=== PATIENT | female | born 1990 | race American Indian/Alaskan Native ===

== ENCOUNTER 2017-05-31 00:12 | Emergency (ER) | payer OTHER ==
[2017-05-31 00:23] VITALS: RESP 18; TEMP 97.6; O2SAT 98
--- NOTE | 2017-05-31 00:55 | ED PDOC ---
Arrival/HPI - General Chief Complaint: Chest Pain Time Seen by Provider: 05/31/17 00:37 Historian: Patient - History of Present Illness Narrative History of Present Illness (Text): 05/31/17 00:52 26yo female with PMHx of seizure and Asthma who present with complaint of right sided chest pain since this morning. States pain is worse with movement and palpation. 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 Denies SOB, diaphoresis, cough, LE edema, calf pain, dizziness, recent travel, nausea, vomiting, abdominal pain, OCP use, any other complaint. Past Medical History - Provider Review Nursing Documentation Reviewed: Yes - Cardiac Hx Cardiac Disorders: No - Pulmonary Hx Respiratory Disorders: Yes - Neurological Hx Neurological Disorder: Yes Hx Seizures: Yes (today unk time) - HEENT Hx HEENT Disorder: No - Renal Hx Renal Disorder: No - Endocrine/Metabolic Hx Endocrine Disorders: No - Hematological/Oncological Hx Blood Disorders: No - Integumentary Hx Dermatological Disorder: No - Musculoskeletal/Rheumatological Hx Musculoskeletal Disorders: No - Gastrointestinal Hx Gastrointestinal Disorders: No - Genitourinary/Gynecological Hx Genitourinary Disorders: No - Psychiatric Hx Psychophysiologic Disorder: No Hx Substance Use: No Family/Social History - Physician Review Nursing Documentation Reviewed: Yes Family/Social History: Unknown Family HX Smoking Status: Never Smoked Hx Alcohol Use: No Hx Substance Use: No Allergies/Home Meds Allergies/Adverse Reactions: Allergies No Known Allergies Allergy (Verified 05/31/17 00:23) Home Medications: Home Meds Medication Instructions Recorded Confirmed Phenytoin, Extended [Dilantin 100 mg PO TID 05/31/17 05/31/17 Danika] Review of Systems - Physician Review All systems were reviewed & negative as marked: Yes - Review of Systems Constitutional: Normal Eyes: Normal ENT: Normal Respiratory: Normal Cardiovascular: Chest Pain. absent: Palpitations, Edema, Calf Pain, MARTINEZ, Orthopnea, Syncope Gastrointestinal: Normal Genitourinary Female: Normal Musculoskeletal: Normal Skin: Normal Neurological: Normal Endocrine: Normal Hemo/Lymphatic: Normal Psychiatric: Normal Physical Exam Vital Signs Reviewed: Yes Vital Signs Temp Pulse Resp BP Pulse Ox 05/31/17 00:17 97.6 F 82 18 101/66 98 Temperature: Afebrile Blood Pressure: Normal Pulse: Regular Respiratory Rate: Normal Appearance: Positive for: Well-Appearing, Non-Toxic, Comfortable Pain Distress: None Mental Status: Positive for: Alert and Oriented X 3 - Systems Exam Head: Present: Atraumatic, Normocephalic Pupils: Present: PERRL Extroacular Muscles: Present: EOMI Conjunctiva: Present: Normal Mouth: Present: Moist Mucous Membranes Neck: Present: Normal Range of Motion Respiratory/Chest: Present: Clear to Auscultation, Good Air Exchange, Tender to Palpation (Right sided sternal wall). No: Respiratory Distress, Accessory Muscle Use, Wheezes, Decreased Breath Sounds, Rales, Retracting, Rhonchi Cardiovascular: Present: Regular Rate and Rhythm, Normal S1, S2. No: Murmurs Abdomen: Present: Normal Bowel Sounds. No: Tenderness, Distention, Peritoneal Signs Back: Present: Normal Inspection Upper Extremity: Present: Normal Inspection. No: Cyanosis, Edema Lower Extremity: Present: Normal Inspection. No: Edema Neurological: Present: GCS=15, CN II-XII Intact, Speech Normal Skin: Present: Warm, Dry, Normal Color. No: Rashes Psychiatric: Present: Alert, Oriented x 3, Normal Insight, Normal Concentration Medical Decision Making ED Course and Treatment: 05/31/17 01:07 PT is not in any distress in ED. Her right sided chest pain is reproducible. Her PERC score is 0. EKG NSR @65bpm CXR NAD. GAs noted in abdomen. Pain could be secondary to gastritis. PT states she was told not take any analgesic because she takes Dilantin?. She will be DC home to f/u with her PMD/Clutch Inspector. Advised to avoid any strenuous/sport activity until she is cleared by a bricklayer paving brick. Advised to return to ED for any new or worsening symptoms. - RAD Interpretation Radiology Orders: 05/31/17 00:49 CHEST TWO VIEWS (PA/LAT) [RAD] Stat Disposition/Present on Arrival - Present on Arrival Any Indicators Present on Arrival: No History of DVT/PE: No History of Uncontrolled Diabetes: No Urinary Catheter: No History of Decub. Ulcer: No History Surgical Site Infection Following: None - Disposition Have Diagnosis and Disposition been Completed?: Yes Diagnosis: Chest pain Disposition: HOME/ ROUTINE Disposition Time: 01:45 Patient Plan: Discharge Condition: STABLE Discharge Instructions (ExitCare): Chest Pain (ED) Additional Instructions: Follow up with your Doctor/Clutch Inspector Avoid any strenuous/sport activity until your cleared by a bricklayer paving brick Return to ED for any new symptoms Forms: [employer] (Salvadorean)
[2017-05-31 02:04] VITALS: BP 110/68; PULSE 72
--- NOTE | 2017-05-31 16:46 | CARD ---
APPROVED REPORT EKG Measurement Heart [id number] [place] [id number] [id number] <Conclusion> Normal sinus rhythm with sinus arrhythmia Normal ECG
== END 2017-05-31 02:00 | disposition home or self-care (01) ==
LOC: ED 00:12 → MERGE 00:12 → ED 02:00
DX: R07.9 Chest pain, unspecified (principal)

== ENCOUNTER 2017-07-15 12:47 | Emergency (ER) | payer OTHER ==
[2017-07-15 12:57] VITALS: BMI 28.3
[2017-07-15 13:06] VITALS: RESP 18; TEMP 97.8
--- NOTE | 2017-07-15 13:20 | ED PDOC ---
Arrival/HPI - General Chief Complaint: Seizure Time Seen by Provider: 07/15/17 13:00 Historian: Patient - History of Present Illness Narrative History of Present Illness (Text): 07/15/17 13:12 A 27 year old female, whose past medical history includes seizure, presents to the emergency department after seizure. Family reports that patient was seizing in bed and they called EMS. Upon EMS arrival, patient was given Versed 5 mg with resolution of seizure. Limited HPI and ROS due to patient's current condition. PMD: Dr. Tone Schwartz Past Medical History - Provider Review Nursing Documentation Reviewed: Yes - Infectious Disease Hx of Infectious Diseases: None - Cardiac Hx Cardiac Disorders: No - Pulmonary Hx Respiratory Disorders: Yes - Neurological Hx Neurological Disorder: Yes Hx Seizures: Yes (today unk time) - HEENT Hx HEENT Disorder: No - Renal Hx Renal Disorder: No - Endocrine/Metabolic Hx Endocrine Disorders: No - Hematological/Oncological Hx Blood Disorders: No - Integumentary Hx Dermatological Disorder: No - Musculoskeletal/Rheumatological Hx Musculoskeletal Disorders: No - Gastrointestinal Hx Gastrointestinal Disorders: No - Genitourinary/Gynecological Hx Genitourinary Disorders: No - Psychiatric Hx Psychophysiologic Disorder: No Hx Substance Use: No Family/Social History - Physician Review Nursing Documentation Reviewed: Yes Family/Social History: No Known Family HX Smoking Status: Never Smoked Hx Alcohol Use: No Hx Substance Use: No Allergies/Home Meds Allergies/Adverse Reactions: Allergies No Known Allergies Allergy (Verified 05/31/17 02:00) Home Medications: Home Meds Medication Instructions Recorded Confirmed Phenytoin, Extended [Dilantin 100 mg PO TID [facility]31[facility]17 [facility] Review of Systems - Review of Systems Systems not reviewed;Unavailable: Altered Mental Status Neurological: Seizure Physical Exam Vital Signs Reviewed: Yes Vital Signs Temp Pulse Resp BP Pulse Ox 07/15/17 15:36 64 18 110/57 L 100 07/15/17 13:02 97.8 F 69 18 103/61 100 Temperature: Afebrile Blood Pressure: Normal Pulse: Regular Respiratory Rate: Normal Appearance: Positive for: Other (patient is arousable but non-verbal) Finger Stick Blood Glucose: 75 - Systems Exam Head: Present: Atraumatic, Normocephalic Pupils: Present: PERRL Extroacular Muscles: Present: EOMI, Other (full EOMI, no gaze deviation) Mouth: Present: Moist Mucous Membranes Respiratory/Chest: Present: Clear to Auscultation, Good Air Exchange. No: Respiratory Distress, Accessory Muscle Use Cardiovascular: Present: Regular Rate and Rhythm, Normal S1, S2. No: Murmurs Abdomen: Present: Normal Bowel Sounds. No: Tenderness, Distention, Peritoneal Signs Upper Extremity: Present: Normal Inspection Lower Extremity: Present: Normal Inspection, Other (spontaneous movement x 4) Neurological: Present: Other (crossing eyes at midline spontaneously; able to move all extremities with sternal rub) Psychiatric: Present: Alert, Other (patient arousable but non-verbal) Medical Decision Making ED Course and Treatment: 07/15/17 13:15 Impression: 27 year old female brought in by EMS after seizure episode. Family reports non-compliance with dilantin which is likely cause of breakthrough seizure. Patient has no head trauma and was lying in bed at home during seizure. Plan: -- EKG -- Chest X-ray -- Labs -- Urinalysis -- Urinary Catheter -- Urine Test -- Reassess and disposition Prior Visits: Notes and results from previous visits were reviewed. Patient was last seen in the emergency department on 05/31/2017 for right sided chest pain. Patient was d /c home. Progress Notes: EKG shows NSR at 70bpm with normal intervals and no st changes 07/15/17 14:33 Patient's sister now at bedside. Patient now AAox3. Dilantin subtherapeutic. 07/15/17 15:56 Loaded with cerebryx. On reevaluation, she has no complaints. She is requesting refill of dilantin. Labs and xray grossly normal. - Lab Interpretations Lab Results: 07/15/17 13:35 07/15/17 13:35 Lab Results 07/15/17 13:35: WBC 4.3 L, RBC 4.41, Hgb 12.1, Hct 37.2, MCV 84.4, MCH 27.4, MCHC 32.5, RDW 13.5, Plt Count 253, MPV 10.6, Gran % 43.9 L, Lymph % (Auto) 40.6 H, [place] % (Auto) 8.9 H, Eos % (Auto) 6.1 H, Baso % (Auto) 0.5, Gran # 1.87 , Lymph # (Auto) 1.7, [place] # (Auto) 0.4, Eos # (Auto) 0.3, Baso # (Auto) 0.02 07/15/17 13:35: Phenytoin < 3 L 07/15/17 13:35: Sodium 142, Potassium 4.1, Chloride 105, Carbon Dioxide 28, Anion Gap 12, BUN 9, Creatinine 0.6 L, Est GFR ( Amer) > 60, Est GFR (Non -Af Amer) > 60, Random Glucose 84, Calcium 9.6, Phosphorus 3.1, Magnesium 1.9, Total Bilirubin 0.4, AST 25, ALT 31, Alkaline Phosphatase 61, Total Protein 7.3 , Albumin 4.1, Globulin 3.2, Albumin/Globulin Ratio 1.3 07/15/17 13:35: Urine Color Light yellow, Urine Appearance Clear, Urine pH 7.5, Ur Specific [place] 1.015, Urine Protein Negative, Urine Glucose (UA) Negative, Urine Ketones Negative, Urine Blood Negative, Urine Nitrate Negative, Urine Bilirubin Negative, Urine Urobilinogen 0.2, Ur Leukocyte Esterase Negative 07/15/17 12:58: POC Glucose (mg/dL) 75 - RAD Interpretation Radiology Orders: 07/15/17 13:15 CHEST PORTABLE [RAD] Stat - Medication Orders Current Medication Orders: Discontinued Medications Fosphenytoin Sodium 1,000 mg/ (Sodium Chloride) 70 mls @ 100 mls/hr IV STAT STA Stop: 07/15/17 15:13 Last Admin: 07/15/17 16:05 Dose: 100 mls/hr eMAR Start Stop Document 07/15/17 16:05 SD (Rec: 07/15/17 16:06 [id number] Intravenous Solution Start Date 07/15/17 Start Time 16:06 - Scribe Statement The provider has reviewed the documentation as recorded by the Rebecca Guardado Provider Scribe Attestation: All medical record entries made by the Scribe were at my direction and personally dictated by me. I have reviewed the chart and agree that the record accurately reflects my personal performance of the history, physical exam, medical decision making, and the department course for this patient. I have also personally directed, reviewed, and agree with the discharge instructions and disposition. Disposition/Present on Arrival - Present on Arrival Any Indicators Present on Arrival: No History of DVT/PE: No History of Uncontrolled Diabetes: No Urinary Catheter: No History of Decub. Ulcer: No History Surgical Site Infection Following: None - Disposition Have Diagnosis and Disposition been Completed?: Yes Diagnosis: Seizure Disposition: HOME/ ROUTINE Disposition Time: 15:56 Patient Plan: Discharge Patient Problems: Current Active Problems Problem Status Onset Seizure Acute Condition: GOOD Discharge Instructions (ExitCare): Seizures, Adult (DC), Seizures Additional Instructions: Take all your medication as prescribed. Return to ED if condition worsens. Follow-up with PMD within 2 days Prescriptions: Phenytoin, Extended [Dilantin Kapseals] 100 mg PO TID #90 cer Referrals: Tone Schwartz MD [Primary Care Provider] - Follow up with primary Pedro Agarwal MD [Staff Provider] - Follow up with primary Forms: [employer] (Nepali)
[2017-07-15 14:05] LABS: BASO # 0.02 K/mm3 (0.0-2.0); BASO % 0.5 % (0.0-3.0); EOS # 0.3 (0.0-0.7); EOS % 6.1 % (1.5-5.0); GRAN # 1.87 (1.4-6.5); GRAN % 43.9 % (50.0-68.0); HEMOGLOBIN 12.1 g/dL (12.0-16.0); LYMPH # 1.7 (1.2-3.4); LYMPH % 40.6 % (22.0-35.0); MEAN CELL VOLUME 84.4 fl (80.0-105.0); MEAN CORPUSCULAR HEMOGLOBIN 27.4 pg (25.0-35.0); MEAN CORPUSCULAR HGB CONC 32.5 g/dl (31.0-37.0); MEAN PLATELET VOLUME 10.6 fl (7.0-11.0); MONO # 0.4 (0.1-0.6); MONO % 8.9 % (1.0-6.0); RBC 4.41 10^6/uL (3.5-6.1); RED CELL DISTRIBUTION WIDTH 13.5 % (11.5-14.5); WHITE BLOOD COUNT 4.3 10^3/ul (4.5-11.0)
[2017-07-15 14:07] LABS: PH,URINE 7.5 (4.7-8.0); URINE APPEARANCE CLEAR (CLEAR); URINE BILIRUBIN NEGATIVE (NEGATIVE); URINE BLOOD NEGATIVE (NEGATIVE); URINE COLOR LIGHT YELLOW (YELLOW); URINE GLUCOSE (UA) NEGATIVE (NEGATIVE); URINE LEUKOCYTE ESTERASE NEGATIVE Leu/uL (NEGATIVE); URINE PROTEIN NEGATIVE mg/dL (<30 mg/dL); URINE UROBILINOGEN 0.2 E.U./dL (<1 E.U./dL)
[2017-07-15 14:13] LABS: ALB/GLOB RATIO 1.3 (1.1-1.8); ALBUMIN 4.1 g/dL (3.0-4.8); ALT/SGPT 31 U/L (7-56); AST/SGOT 25 U/L (14-36); BLOOD UREA NITROGEN 9 mg/dL (7-21); CALCIUM 9.6 mg/dL (8.4-10.5); GFR AFRICAN-AMERICAN > 60; GFR NON-AFRICAN AMERICAN > 60
[2017-07-15] MEDS ORDERED: Fosphenytoin 1,000 MG in Sodium Chloride 0.9% 50 ML IV STA (14:32)
--- NOTE | 2017-07-15 15:53 | RAD ---
HISTORY: seizure COMPARISON: 05/31/2017. FINDINGS: LUNGS: The lungs are well inflated and clear. PLEURA: No significant pleural effusion identified, no pneumothorax apparent. CARDIOVASCULAR: Normal. OSSEOUS STRUCTURES: No significant abnormalities. VISUALIZED UPPER ABDOMEN: Normal. OTHER FINDINGS: None. IMPRESSION: No acute findings.
[2017-07-15 16:46] VITALS: BP 103/62; PULSE 67; O2SAT 99
--- NOTE | 2017-07-15 17:43 | CARD ---
APPROVED REPORT EKG Measurement Heart [id number] [place] 162P52 [id number] <Conclusion> Normal sinus rhythm Normal ECG
== END 2017-07-15 17:01 | disposition home or self-care (01) ==
LOC: ED 12:47
DX: R56.9 Unspecified convulsions (principal)
CPT/HCPCS: 71045; 80053; 80185; 81003; 82948; 83735; 84100; 85025; 93005; 96374; 99285; Q2009

== ENCOUNTER 2017-07-25 20:44 | Emergency (ER) | payer OTHER ==
[2017-07-25 20:47] VITALS: BMI 18.8
[2017-07-25 20:59] VITALS: RESP 18; TEMP 98.1; O2SAT 100
[2017-07-25 21:21] LABS: BASO # 0.04 K/mm3 (0.0-2.0); BASO % 0.8 % (0.0-3.0); EOS # 0.4 (0.0-0.7); EOS % 7.4 % (1.5-5.0); GRAN # 1.81 (1.4-6.5); GRAN % 35.3 % (50.0-68.0); HEMOGLOBIN 13.3 g/dL (12.0-16.0); LYMPH # 2.3 (1.2-3.4); LYMPH % 45.4 % (22.0-35.0); MEAN CELL VOLUME 81.5 fl (80.0-105.0); MEAN CORPUSCULAR HEMOGLOBIN 27.7 pg (25.0-35.0); MEAN CORPUSCULAR HGB CONC 33.9 g/dl (31.0-37.0); MEAN PLATELET VOLUME 10.1 fl (7.0-11.0); MONO # 0.6 (0.1-0.6); MONO % 11.1 % (1.0-6.0); RBC 4.81 10^6/uL (3.5-6.1); RED CELL DISTRIBUTION WIDTH 13.1 % (11.5-14.5); WHITE BLOOD COUNT 5.1 10^3/ul (4.5-11.0)
--- NOTE | 2017-07-25 21:27 | ED PDOC ---
Arrival/HPI - General Chief Complaint: Seizure Time Seen by Provider: 07/25/17 20:45 Historian: EMS EM Caveat: Acuity of Condition - History of Present Illness Narrative History of Present Illness (Text): 07/25/17 21:24 27 year old female presents to the Emergency department due to seizure just prior to arrival. Patient had one seizure, medics were called; patient had another seizure in front of them at the scene and then three more before arriving. While in the Emergency department, patient is unconscious due to being medicated by the medics. History and ROS are limited due to patient's condition. Time/Duration: Prior to Arrival Symptom Onset: Sudden Symptom Course: Unchanged Context: Home Past Medical History - Provider Review Nursing Documentation Reviewed: Yes - Infectious Disease Hx of Infectious Diseases: None - Cardiac Hx Cardiac Disorders: No - Pulmonary Hx Respiratory Disorders: Yes Hx Asthma: Yes - Neurological Hx Neurological Disorder: Yes Hx Seizures: Yes (seizure today07/25) - HEENT Hx HEENT Disorder: No - Renal Hx Renal Disorder: No - Endocrine/Metabolic Hx Endocrine Disorders: No - Hematological/Oncological Hx Blood Disorders: No - Integumentary Hx Dermatological Disorder: No - Musculoskeletal/Rheumatological Hx Musculoskeletal Disorders: No - Gastrointestinal Hx Gastrointestinal Disorders: No - Genitourinary/Gynecological Hx Genitourinary Disorders: No - Psychiatric Hx Psychophysiologic Disorder: No Hx Substance Use: No - Anesthesia Hx Anesthesia: Yes Hx Anesthesia Reactions: No Hx Malignant Hyperthermia: No Family/Social History - Physician Review Nursing Documentation Reviewed: Yes Family/Social History: Unknown Family HX Smoking Status: Never Smoked Hx Alcohol Use: No Hx Substance Use: No Allergies/Home Meds Allergies/Adverse Reactions: Allergies No Known Allergies Allergy (Verified 07/25/17 20:47) Review of Systems - Review of Systems Systems not reviewed;Unavailable: Acuity of Condition (patient is unconscious due to medication received) Physical Exam Vital Signs Reviewed: Yes Vital Signs Temp Pulse Resp BP Pulse Ox 07/26/17 01:35 77 18 105/89 100 07/25/17 23:17 78 18 105/64 100 07/25/17 20:58 98.1 F 65 18 101/65 100 Temperature: Afebrile Blood Pressure: Normal Pulse: Regular Respiratory Rate: Normal Appearance: Positive for: Well-Appearing, Non-Toxic, Comfortable Pain Distress: None Mental Status: Positive for: Alert and Oriented X 3 - Systems Exam Head: Present: Atraumatic, Normocephalic Pupils: Present: PERRL Conjunctiva: Present: Normal Mouth: Present: Moist Mucous Membranes Respiratory/Chest: Present: Clear to Auscultation, Good Air Exchange. No: Respiratory Distress, Accessory Muscle Use Cardiovascular: Present: Regular Rate and Rhythm, Normal S1, S2. No: Murmurs Back: Present: Normal Inspection Upper Extremity: Present: Normal Inspection. No: Cyanosis, Edema Lower Extremity: Present: Normal Inspection. No: Edema Skin: Present: Warm, Dry, Normal Color. No: Rashes Medical Decision Making ED Course and Treatment: 07/25/17 21:31 Impression: 27 year old female presents to the Emergency department following multiple seizures. Plan: -- EKG -- HCG qualitative urine -- Labs -- Reassess and disposition Prior Visits: Notes and results from previous visits were reviewed. Patient was last seen in the emergency department on 07/15/17, was diagnosed with seizure, and was discharged home. Progress Notes: 07/25/17 23:23 EKG: Ordered, reviewed, and independently interpreted the EKG. Rate : 66 BPM Rhythm : NSR Interpretation : Nonspecific ST/T segment changes - Lab Interpretations Lab Results: 07/25/17 20:58 07/25/17 20:58 Lab Results 07/25/17 23:40: Urine HCG, Qual Negative 07/25/17 23:40: Urine Opiates Screen Negative, Urine Methadone Screen Negative, Ur Barbiturates Screen Negative, Ur Phencyclidine Scrn Negative, Ur Amphetamines Screen Negative, U Benzodiazepines Scrn Positive, U Oth Cocaine Metabols Negative, U Cannabinoids Screen Negative 07/25/17 20:58: Phenytoin 8 L 07/25/17 20:58: Sodium 141, Potassium 3.9, Chloride 102, Carbon Dioxide 27, Anion Gap 16, BUN 9, Creatinine 0.7, Est GFR ( Amer) > 60, Est GFR (Non- Af Amer) > 60, Random Glucose 87, Calcium 10.2, Total Bilirubin 0.2, AST 56 H D , ALT 58 H, Alkaline Phosphatase 78, Total Protein 8.5 H, Albumin 4.7, Globulin 3.8, Albumin/Globulin Ratio 1.3 07/25/17 20:58: WBC 5.1, RBC 4.81, Hgb 13.3, Hct 39.2, MCV 81.5, MCH 27.7, MCHC 33.9, RDW 13.1, Plt Count 264, MPV 10.1, Gran % 35.3 L, Lymph % (Auto) 45.4 H, [place] % (Auto) 11.1 H, Eos % (Auto) 7.4 H, Baso % (Auto) 0.8, Gran # 1.81, Lymph # (Auto) 2.3, [place] # (Auto) 0.6, Eos # (Auto) 0.4, Baso # (Auto) 0.04 07/25/17 20:49: POC Glucose (mg/dL) 74 - Medication Orders Current Medication Orders: Discontinued Medications Fosphenytoin Sodium 500 mg/ (Sodium Chloride) 60 mls @ 100 mls/hr IVPB STAT STA Stop: 07/25/17 22:20 Last Admin: 07/25/17 22:24 Dose: 100 mls/hr eMAR Start Stop Document 07/25/17 22:24 AD (Rec: 07/25/17 22:24 AD [id number]) Intravenous Solution Start Date 07/25/17 Start Time 22:24 - Scribe Statement The provider has reviewed the documentation as recorded by the Rebecca Smith Provider Scribe Attestation: All medical record entries made by the Scribe were at my direction and personally dictated by me. I have reviewed the chart and agree that the record accurately reflects my personal performance of the history, physical exam, medical decision making, and the department course for this patient. I have also personally directed, reviewed, and agree with the discharge instructions and disposition. Disposition/Present on Arrival - Present on Arrival Any Indicators Present on Arrival: No History of DVT/PE: No History of Uncontrolled Diabetes: No Urinary Catheter: No History of Decub. Ulcer: No History Surgical Site Infection Following: None - Disposition Have Diagnosis and Disposition been Completed?: Yes Diagnosis: Seizure Disposition: HOME/ ROUTINE Disposition Time: 01:35 Condition: FAIR Discharge Instructions (ExitCare): Seizures, Adult (DC) Additional Instructions: take your medicine as directed Referrals: [facility] Lukasz Retomás, [Non-Staff] - Follow up with primary Forms: [employer] (Haitian), WORK NOTE
[2017-07-25 21:34] LABS: ALB/GLOB RATIO 1.3 (1.1-1.8); ALBUMIN 4.7 g/dL (3.0-4.8); ALT/SGPT 58 U/L (7-56); AST/SGOT 56 U/L (14-36); BLOOD UREA NITROGEN 9 mg/dL (7-21); CALCIUM 10.2 mg/dL (8.4-10.5); GFR AFRICAN-AMERICAN > 60; GFR NON-AFRICAN AMERICAN > 60
[2017-07-25] MEDS ORDERED: SODIUM CHLORIDE 0.9% IVPB STA (21:39)
[2017-07-25] MEDS ORDERED: FOSPHENYTOIN IVPB STA (21:39)
[2017-07-26 00:28] LABS: BARBITURATES, UR NEGATIVE (NEGATIVE)
[2017-07-26 00:30] LABS: BENZODIAZEPINES, UR POSITIVE (NEGATIVE); OPIATES, UR NEGATIVE (NEGATIVE); PHENCYCLIDINE, UR NEGATIVE (NEGATIVE)
[2017-07-26 01:46] VITALS: BP 105/89; PULSE 77
--- NOTE | 2017-07-26 11:08 | CARD ---
APPROVED REPORT EKG Measurement Heart [id number] [place] 158P62 [id number] <Conclusion> Normal sinus rhythm Normal ECG No change
== END 2017-07-26 01:35 | disposition home or self-care (01) ==
LOC: ED 20:44
DX: R56.9 Unspecified convulsions (principal)
CPT/HCPCS: 80053; 80185; 80324; 80345; 80346; 80349; 80353; 80358; 80361; 82948; 83992; 84703; 85025; 93005; 96374; 99285; Q2009

== ENCOUNTER 2017-09-06 11:03 | Emergency (ER) | payer OTHER ==
[2017-09-06 11:07] VITALS: BMI 23.8
[2017-09-06 11:12] VITALS: RESP 18; TEMP 97.8; O2SAT 100
--- NOTE | 2017-09-06 11:59 | RAD ---
HISTORY: cough x 1 week COMPARISON: No prior. TECHNIQUE: Chest PA and lateral FINDINGS: LUNGS: No active pulmonary disease. PLEURA: No significant pleural effusion identified. No pneumothorax apparent. CARDIOVASCULAR: Normal. OSSEOUS STRUCTURES: No significant abnormalities. VISUALIZED UPPER ABDOMEN: Normal. OTHER FINDINGS: None. IMPRESSION: No active disease.
[2017-09-06] MEDS ORDERED: Sodium Chloride 0.9% 1,000 ML IV STA (12:19)
--- NOTE | 2017-09-06 12:38 | ED PDOC ---
Arrival/HPI - General Chief Complaint: Cough, Cold, Congestion Time Seen by Provider: 09/06/17 11:23 Historian: Patient - History of Present Illness Narrative History of Present Illness (Text): 09/06/17 12:34 27-year-old female presents today with a one-week history of cough. Patient states the cough is dry and nonproductive. Patient states she has a history of asthma. Patient states today she woke up with chest pain and continued dry cough. Patient complaining of pain with deep inspiration. Patient complaining of shortness of breath. Patient states when she coughs she gags herself and sometimes vomits. Patient denies dizziness or weakness. Denies fevers or chills. Denies urinary symptoms. Denies calf pain. Denies recent travel. No other complaints Time/Duration: 1 week Past Medical History - Provider Review Nursing Documentation Reviewed: Yes - Travel History Have you recently traveled outside [place] w/in the past 3 mons?: No - Infectious Disease Hx of Infectious Diseases: None - Cardiac Hx Cardiac Disorders: No - Pulmonary Hx Respiratory Disorders: Yes Hx Asthma: Yes - Neurological Hx Seizures: Yes (today unk time) - HEENT Hx HEENT Disorder: No - Renal Hx Renal Disorder: No - Endocrine/Metabolic Hx Endocrine Disorders: No - Hematological/Oncological Hx Blood Disorders: No - Integumentary Hx Dermatological Disorder: No - Musculoskeletal/Rheumatological Hx Musculoskeletal Disorders: No - Gastrointestinal Hx Gastrointestinal Disorders: No - Genitourinary/Gynecological Hx Genitourinary Disorders: No - Psychiatric Hx Psychophysiologic Disorder: No Hx Substance Use: No - Anesthesia Hx Anesthesia: Yes Hx Anesthesia Reactions: No Hx Malignant Hyperthermia: No Family/Social History - Physician Review Nursing Documentation Reviewed: Yes Family/Social History: Unknown Family HX Smoking Status: Never Smoked Hx Alcohol Use: No Hx Substance Use: No Allergies/Home Meds Allergies/Adverse Reactions: Allergies No Known Allergies Allergy (Verified 07/25/17 20:47) Review of Systems - Review of Systems Constitutional: absent: Fatigue, Fevers ENT: Sore Throat, Sinus Congestion Respiratory: SOB, Cough. absent: Wheezing Cardiovascular: Chest Pain (only with cough). absent: Palpitations Gastrointestinal: absent: Abdominal Pain, Nausea, Vomiting Genitourinary Female: absent: Dysuria, Frequency, Hematuria Musculoskeletal: absent: Arthralgias, Back Pain, Neck Pain Skin: absent: Rash, Pruritis Neurological: absent: Headache, Dizziness Psychiatric: absent: Anxiety, Depression Physical Exam Vital Signs Reviewed: Yes Vital Signs Temp Pulse Resp BP Pulse Ox 09/06/17 14:32 72 18 118/75 100 09/06/17 12:17 70 18 101/66 100 09/06/17 11:12 97.8 F 87 18 109/78 100 Temperature: Afebrile Blood Pressure: Normal Pulse: Regular Respiratory Rate: Normal Appearance: Positive for: Well-Appearing, Non-Toxic, Comfortable Pain Distress: None Mental Status: Positive for: Alert and Oriented X 3 - Systems Exam Head: Present: Atraumatic Pupils: Present: PERRL Extroacular Muscles: Present: EOMI Conjunctiva: Present: Normal Ears: Present: Normal, NORMAL TM Mouth: Present: Moist Mucous Membranes Pharnyx: Present: Normal Nose (External): Present: Atraumatic Neck: Present: Normal Range of Motion Respiratory/Chest: Present: Clear to Auscultation, Good Air Exchange. No: Respiratory Distress, Accessory Muscle Use, Wheezes, Retracting, Rhonchi, Tachypneic, Tender to Palpation Cardiovascular: Present: Regular Rate and Rhythm, Normal S1, S2. No: Murmurs Abdomen: No: Tenderness, Rebound, Guarding Back: Present: Normal Inspection. No: CVA Tenderness Upper Extremity: Present: Normal ROM Lower Extremity: Present: Normal ROM Neurological: Present: GCS=15 Skin: Present: Warm, Dry, Normal Color. No: Rashes Psychiatric: Present: Alert, Oriented x 3 Medical Decision Making ED Course and Treatment: 09/06/17 12:47 Patient is nontoxic well-appearing. C/o flu-like symptoms. tylenol PO cbc; wnl cmp wnl dimer; elevated ekg: Normal sinus rhythm at 68 bpm normal axis normal intervals no ST elevations cxr; wnl cta; FINDINGS: PULMONARY ARTERIES: Unremarkable. No pulmonary embolism. AORTA: No acute findings. No thoracic aortic aneurysm. LUNGS: Unremarkable. No nodule, mass or pulmonary consolidation. PLEURAL SPACES: Unremarkable. No effusion or pneuomothorax. HEART: Unremarkable. No cardiomegaly. No significant pericardial effusion. LYMPH NODES: No lymphadenopathy. BONES, CHEST WALL: Unremarkable. No fracture or destructive lesion OTHER FINDINGS: Prominent anterior mediastinal retrosternal soft tissue likely residual thymus. IMPRESSION: Unremarkable CT pulmonary angiogram. No pulmonary embolus. Patient reassessment: Pt feeling better; vitals stable. zithromax given PO discussed all results with patient. I advised follow up with primary care physician within the next 2 days. I advised increase fluids and return if symptoms worsen persist or if new symptoms develop Patient verbalizes understanding of discharge instructions and need for immediate followup. all aspects of this case were discussed the attending of record. IMPRESSION; cough Motrin one tablet every 6 hours as needed for pain zithromax daily x 4 days. Increase fluids Followup with primary care physician the next 2 days Return if symptoms worsen persist or if new symptoms develop: Continued high fevers, dizziness, weakness, chest pain or shortness of breath vomiting/diarrhea , or if any other concerning symptoms develop 09/06/17 15:15 Reassessment Condition: Re-examined, Improved - Lab Interpretations Lab Results: 09/06/17 12:45 09/06/17 12:45 Lab Results 09/06/17 12:45: WBC 6.8 D, RBC 4.37, Hgb 12.1, Hct 36.1, MCV 82.6, MCH 27.7, MCHC 33.5, RDW 12.9, Plt Count 286, MPV 10.0, Gran % 44.3 L, Lymph % (Auto) 38.8 H, [place] % (Auto) 9.6 H, Eos % (Auto) 7.0 H, Baso % (Auto) 0.3, Gran # 2.99 , Lymph # (Auto) 2.6, [place] # (Auto) 0.7 H, Eos # (Auto) 0.5, Baso # (Auto) 0.02 09/06/17 12:45: Sodium 140, Potassium 4.0, Chloride 102, Carbon Dioxide 29, Anion Gap 13, BUN 9, Creatinine 0.6 L, Est GFR ( Amer) > 60, Est GFR (Non -Af Amer) > 60, Random Glucose 98, Calcium 9.2, Total Bilirubin 0.2, AST 44 H D , ALT 54, Alkaline Phosphatase 118, Total Protein 7.4, Albumin 4.1, Globulin 3.3 , Albumin/Globulin Ratio 1.2 09/06/17 12:45: D-Dimer, Quantitative 359 H - RAD Interpretation Radiology Orders: 09/06/17 11:23 CHEST TWO VIEWS (PA/LAT) [RAD] Stat 09/06/17 13:32 ANGIO CHEST PE PROTOCOL [CT] Stat - Medication Orders Current Medication Orders: Discontinued Medications Sodium Chloride (Sodium Chloride 0.9%) 1,000 mls @ 999 mls/hr IV .Q1H1M STA Stop: 09/06/17 13:19 Last Admin: 09/06/17 12:34 Dose: 999 mls/hr eMAR Start Stop Document 09/06/17 12:34 SZA (Rec: 09/06/17 12:35 SZA [id number]) Intravenous Solution Start Date 09/06/17 Start Time 12:34 End Date 09/06/17 End time 13:34 Total Infusion Time 60 Ketorolac Tromethamine (Toradol) 30 mg IVP STAT STA Stop: 09/06/17 12:20 Last Admin: 09/06/17 12:33 Dose: 30 mg MAR Pain Assessment Document 09/06/17 12:33 SZA (Rec: 09/06/17 12:33 SZA [id number]) Pain Reassessment Is this a pain reassessment? No Sleep Is patient sleeping during reassessment? No Presence of Pain Presence of Pain Yes IVP Administration Document 09/06/17 12:33 SZA (Rec: 09/06/17 12:33 SZA [id number]) Charges for Administration # of IVP Administrations 1 Disposition/Present on Arrival - Present on Arrival Any Indicators Present on Arrival: No History of DVT/PE: No History of Uncontrolled Diabetes: No Urinary Catheter: No History of Decub. Ulcer: No History Surgical Site Infection Following: None - Disposition Have Diagnosis and Disposition been Completed?: Yes Diagnosis: Cough Disposition: HOME/ ROUTINE Disposition Time: 15:17 Patient Plan: Discharge Patient Problems: Current Active Problems Problem Status Onset Cough Acute Condition: GOOD Discharge Instructions (ExitCare): Cough in Adults Additional Instructions: Motrin one tablet every 6 hours as needed for pain zithromax daily x 4 days. Increase fluids Followup with primary care physician the next 2 days Return if symptoms worsen persist or if new symptoms develop: Continued high fevers, dizziness, weakness, chest pain or shortness of breath vomiting/diarrhea , or if any other concerning symptoms develop Prescriptions: Azithromycin [Zithromax] 250 mg PO DAILY #4 tab Ibuprofen [Motrin] 600 mg PO Q6H PRN #20 tab PRN Reason: pain/fever reduction Referrals: Kendall Tierney MD [Staff Provider] - Follow up with primary [facility] [Outside] - Follow up with primary Forms: [employer] (Maori), WORK NOTE
[2017-09-06 13:04] LABS: BASO # 0.02 K/mm3 (0.0-2.0); BASO % 0.3 % (0.0-3.0); EOS # 0.5 (0.0-0.7); GRAN # 2.99 (1.4-6.5); GRAN % 44.3 % (50.0-68.0); HEMOGLOBIN 12.1 g/dL (12.0-16.0); LYMPH # 2.6 (1.2-3.4); LYMPH % 38.8 % (22.0-35.0); MEAN CELL VOLUME 82.6 fl (80.0-105.0); MEAN CORPUSCULAR HEMOGLOBIN 27.7 pg (25.0-35.0); MEAN CORPUSCULAR HGB CONC 33.5 g/dl (31.0-37.0); MONO # 0.7 (0.1-0.6); MONO % 9.6 % (1.0-6.0); RBC 4.37 10^6/uL (3.5-6.1); RED CELL DISTRIBUTION WIDTH 12.9 % (11.5-14.5); WHITE BLOOD COUNT 6.8 10^3/ul (4.5-11.0)
[2017-09-06 13:12] LABS: ALB/GLOB RATIO 1.2 (1.1-1.8); ALBUMIN 4.1 g/dL (3.0-4.8); ALT/SGPT 54 U/L (7-56); AST/SGOT 44 U/L (14-36); BLOOD UREA NITROGEN 9 mg/dL (7-21); CALCIUM 9.2 mg/dL (8.4-10.5); GFR AFRICAN-AMERICAN > 60; GFR NON-AFRICAN AMERICAN > 60
[2017-09-06] MEDS ORDERED: Iodixanol 320 MG/ML 100 ML BOTTLE IV ONE (13:51)
--- NOTE | 2017-09-06 14:46 | CT ---
PROCEDURE: CT Chest with contrast (Pulmonary Angiogram) HISTORY: chest pain/cough/sob COMPARISON: September 06, 2017. Two-view chest TECHNIQUE: Axial computed tomography images were obtained of the chest in the pulmonary arterial phase of enhancement. Coronal and sagittal reformatted images were created and reviewed. Intravenous contrast dose: 100 cc Omnipaque 350. Mean Hounsfield unit values in the main pulmonary artery: 407.26 Radiation dose: Total exam DLP = 303.31 mGy-cm. This CT exam was performed using one or more of the following dose reduction techniques: Automated exposure control, adjustment of the mA and/or kV according to patient size, and/or use of iterative reconstruction technique. FINDINGS: PULMONARY ARTERIES: Unremarkable. No pulmonary embolism. AORTA: No acute findings. No thoracic aortic aneurysm. LUNGS: Unremarkable. No nodule, mass or pulmonary consolidation. PLEURAL SPACES: Unremarkable. No effusion or pneuomothorax. HEART: Unremarkable. No cardiomegaly. No significant pericardial effusion. LYMPH NODES: No lymphadenopathy. BONES, CHEST WALL: Unremarkable. No fracture or destructive lesion OTHER FINDINGS: Prominent anterior mediastinal retrosternal soft tissue likely residual thymus. IMPRESSION: Unremarkable CT pulmonary angiogram. No pulmonary embolus.
[2017-09-06 15:27] VITALS: BP 115/71; PULSE 82
--- NOTE | 2017-09-06 20:13 | CARD ---
APPROVED REPORT EKG Measurement Heart [id number] <Conclusion> Normal sinus rhythm Normal ECG
== END 2017-09-06 15:50 | disposition home or self-care (01) ==
LOC: ED 11:03
DX: R05 Cough (principal)
CPT/HCPCS: 71046; 71275; 80053; 85025; 85378; 93005; 96361; 96374; 99284; J1885; J7040; Q9967

== ENCOUNTER 2017-10-21 13:30 | Emergency (ER) | payer OTHER ==
[2017-10-21 13:31] VITALS: BMI 23.8
--- NOTE | 2017-10-21 18:01 | ED PDOC ---
Arrival/HPI - General Chief Complaint: Back Pain Time Seen by Provider: 10/21/17 17:39 Historian: Patient - History of Present Illness Narrative History of Present Illness (Text): 10/21/17 17:57 27 year old female, whose past medical history includes UTI's, who presents to the emergency department complaining of lower back pain for several days. Patient notes she took several medications, such as tylenol and motrin, with minimal relief. Patient denies any fevers, chills, chest pain, shortness of breath, abdominal pain, nausea, vomiting, diarrhea, back pain, neck pain, urinary symptoms, headache, dizziness, trauma/injury, or any other complaint. Time/Duration: < week Symptom Onset: Gradual Symptom Course: Unchanged Activities at Onset: Light Context: Home Past Medical History - Provider Review Nursing Documentation Reviewed: Yes - Infectious Disease Hx of Infectious Diseases: None - Cardiac Hx Cardiac Disorders: No - Pulmonary Hx Respiratory Disorders: Yes Hx Asthma: Yes - Neurological Hx Seizures: Yes - HEENT Hx HEENT Disorder: No - Renal Hx Renal Disorder: No - Endocrine/Metabolic Hx Endocrine Disorders: No - Hematological/Oncological Hx Blood Disorders: No - Integumentary Hx Dermatological Disorder: No - Musculoskeletal/Rheumatological Hx Musculoskeletal Disorders: No - Gastrointestinal Hx Gastrointestinal Disorders: No - Genitourinary/Gynecological Hx Genitourinary Disorders: No - Psychiatric Hx Psychophysiologic Disorder: No Hx Substance Use: No - Anesthesia Hx Anesthesia: Yes Hx Anesthesia Reactions: No Hx Malignant Hyperthermia: No Family/Social History - Physician Review Nursing Documentation Reviewed: Yes Family/Social History: Unknown Family HX Smoking Status: Never Smoked Hx Alcohol Use: No Hx Substance Use: No Allergies/Home Meds Allergies/Adverse Reactions: Allergies No Known Allergies Allergy (Verified 07/25/17 20:47) Home Medications: Home Meds Medication Instructions Recorded Confirmed Albuterol HFA [Ventolin HFA 90 1 puff IH DAILY PRN 10/21/17 10/21/17 mcg/actuation (8 g)] Review of Systems - Physician Review All systems were reviewed & negative as marked: Yes - Review of Systems Constitutional: Normal Eyes: Normal ENT: Normal Respiratory: Normal. absent: SOB, Cough Cardiovascular: Normal. absent: Chest Pain Gastrointestinal: Normal. absent: Abdominal Pain Genitourinary Female: Normal. absent: Dysuria, Frequency, Hematuria Musculoskeletal: Back Pain (lower back pain). absent: Neck Pain Skin: Normal. absent: Rash Neurological: Normal. absent: Headache, Dizziness Endocrine: Normal Hemo/Lymphatic: Normal Psychiatric: Normal Physical Exam Vital Signs Reviewed: Yes Vital Signs Temp Pulse Resp BP Pulse Ox 10/21/17 17:54 74 18 115/71 99 10/21/17 13:40 99 F 93 H 18 105/70 98 Temperature: Afebrile Blood Pressure: Normal Pulse: Regular Respiratory Rate: Normal Appearance: Positive for: Well-Appearing, Non-Toxic, Comfortable Pain Distress: None Mental Status: Positive for: Alert and Oriented X 3 - Systems Exam Head: Present: Atraumatic, Normocephalic Pupils: Present: PERRL Extroacular Muscles: Present: EOMI Conjunctiva: Present: Normal Mouth: Present: Moist Mucous Membranes Neck: Present: Normal Range of Motion. No: Meningeal Signs, MIDLINE TENDERNESS , Paraspinal Tenderness Respiratory/Chest: Present: Clear to Auscultation, Good Air Exchange. No: Respiratory Distress, Accessory Muscle Use Cardiovascular: Present: Regular Rate and Rhythm, Normal S1, S2. No: Murmurs Abdomen: No: Tenderness, Distention, Peritoneal Signs Back: Present: Other (diffuse lower back tenderness). No: CVA Tenderness, Midline Tenderness, Paraspinal Tenderness Upper Extremity: Present: Normal Inspection. No: Cyanosis, Edema Lower Extremity: Present: Normal Inspection. No: Edema Neurological: Present: GCS=15, CN II-XII Intact, Speech Normal Skin: Present: Warm, Dry, Normal Color. No: Rashes Psychiatric: Present: Alert, Oriented x 3, Normal Insight, Normal Concentration Medical Decision Making ED Course and Treatment: 10/21/17 18:03 Impression: 27 year old female presents to the emergency department complaining of lower back pain for several days. Plan: -- Ibuprofen -- HCG Qualitative -- Urinalysis -- Reassess and disposition Progress Notes: - Lab Interpretations Lab Results: Lab Results 10/21/17 18:11: Urine Color Yellow, Urine Appearance Cloudy, Urine pH 6.5, Ur Specific [place] 1.015, Urine Protein Negative, Urine Glucose (UA) Negative, Urine Ketones Negative, Urine Blood Negative, Urine Nitrate Negative, Urine Bilirubin Negative, Urine Urobilinogen 1.0 H, Ur Leukocyte Esterase Large H, Urine RBC 0 - 2, Urine WBC 15 - 20, Ur Epithelial Cells 10 - 12, Urine Bacteria Mod - Medication Orders Current Medication Orders: Discontinued Medications Ibuprofen (Motrin Tab) 800 mg PO STAT STA Stop: 10/21/17 17:40 Last Admin: 10/21/17 18:10 Dose: 800 mg MAR Pain/Vitals Document 10/21/17 18:10 OCS (Rec: 10/21/17 18:11 OCS [id number]) Pain Reassessment Is This A Pain ReAssessment? No Sleep Is patient sleeping during reassessment? No Presence of Pain Presence of Pain Yes Pain Scale Used Pain Scale Used Numeric Location Upper or Lower Lower Pain Location Body Site Back Description Constant Intensity 8 Scale Used Numeric Aggravating Factors ADL's - Scribe Statement The provider has reviewed the documentation as recorded by the Scribyoana Mayo All medical record entries made by the Scribe were at my direction and personally dictated by me. I have reviewed the chart and agree that the record accurately reflects my personal performance of the history, physical exam, medical decision making, and the department course for this patient. I have also personally directed, reviewed, and agree with the discharge instructions and disposition. Disposition/Present on Arrival - Present on Arrival Any Indicators Present on Arrival: No History of DVT/PE: No History of Uncontrolled Diabetes: No Urinary Catheter: No History of Decub. Ulcer: No History Surgical Site Infection Following: None - Disposition Have Diagnosis and Disposition been Completed?: Yes Diagnosis: Back pain, UTI (urinary tract infection) Disposition: HOME/ ROUTINE Disposition Time: 18:47 Patient Plan: Discharge Patient Problems: Current Active Problems Problem Status Onset Back pain Acute Condition: IMPROVED Discharge Instructions (ExitCare): Upper Back Pain (DC), Urinary Tract Infections in Adults Prescriptions: Cefpodoxime [Vantin] 100 mg PO BID #14 tab Ibuprofen [Motrin] 600 mg PO Q8 PRN #30 tab PRN Reason: Pain, Moderate (4-7) Methocarbamol [Robaxin] 500 mg PO QID PRN #30 tab PRN Reason: Muscle Spasm Forms: [facility] (Indonesian)
[2017-10-21 18:13] LABS: PH,URINE 6.5 (4.7-8.0); URINE BILIRUBIN NEGATIVE (NEGATIVE); URINE BLOOD NEGATIVE (NEGATIVE); URINE GLUCOSE (UA) NEGATIVE (NEGATIVE); URINE LEUKOCYTE ESTERASE LARGE Leu/uL (NEGATIVE); URINE PROTEIN NEGATIVE mg/dL (<30 mg/dL)
[2017-10-21 18:19] LABS: URINE APPEARANCE CLOUDY (CLEAR); URINE COLOR YELLOW (YELLOW)
[2017-10-21 18:34] LABS: URINE BACTERIA MOD (NEG); URINE RBC 0 - 2 /hpf (0-2); URINE WBC 15 - 20 /hpf (0-6)
[2017-10-21 19:27] VITALS: BP 102/64; PULSE 81
[2017-10-21 19:32] VITALS: RESP 16; TEMP 98.9; O2SAT 99
== END 2017-10-21 19:30 | disposition home or self-care (01) ==
LOC: ED 13:30
DX: N39.0 Urinary tract infection, site not specified (principal); M54.9 Dorsalgia, unspecified